=== PATIENT | female | born 1995 | race Hispanic/Latino ===

== ENCOUNTER 2017-01-09 01:23 | Emergency (ER) | payer OTHER ==
[~2017-01-09] VITALS: Ht 149.9 cm; Wt 45.5 kg
[2017-01-09 01:28] VITALS: BP 119/78; PULSE 78; RESP 16; O2SAT 100
[2017-01-09] MEDS ORDERED: 0.9% Sodium Chloride 1,000 ML IV ONE (01:45)
[2017-01-09] MEDS ORDERED: MethylprednisoLONE Sodium Succinate 62.5 mg/mL 2 mL Inj IVPUSH ONE (01:45)
--- NOTE | 2017-01-09 01:48 | ED.REPORT ---
HPI-Allergic Reaction Date of Service January 09, 2017 ED Provider: Fredy Ulrich MD 21 y/o female with no pertinent hx presents to the ED complaining of facial swelling, itching, facial erythema, burning sensation in the face, numbness in the cheeks and headache, onset this afternoon. Her sx seemed to resolve partially since arriving at the ED. She reports she is unaware of the cause of this allergic reaction. She denies dyspnea, hives and dysphasia. Nursing Notes Stated Complaint: ALLERGIC REACTION, FACE SWELLING Chief Complaint: Allergic Reaction Nursing Notes Reviewed: Yes Allergies: Coded Allergies: No Known Allergies (Verified Allergy, Unknown, 01/16/16) No Active Prescriptions or Reported Meds General Time Seen by MD: 01:43 Chief Complaint Allergic reaction, Swelling face Hx Obtained From: Patient Arrived By: Walk-in Onset Occurred: 1 - 4 hours ago Context of Onset: Unknown Symptom Duration: Since onset Progression Since Onset: Constant Location: : Head Quality: Painful Severity: Current: Mild Severity: Maximum: Mild Recent Healthcare: No recent doctor visit Similar Sx Previous: No Past Medical History Past Medical History none reported Past Surgical History none reported Smoking History Never Smoker Social History Alcohol Use: Denies alcohol use Drug Use: Denies drug use Other Social History: Lives with parents Occupation works at a [employer] Status Independent Review of Systems reports: facial swelling, facial erythema, facial numbness and "burning" sensation denies: dysphasia Eyes: Reports: Blurred bilateral, Blurred left, Blurred right, Diplopia, Discharge bilateral, Discharge left, Discharge right, Eye pain bilateral, Eye pain left, Eye pain right, Photophobia, Redness bilateral, Redness left, Redness right, Visual loss bilateral, Visual loss left, Visual loss right Respiratory: Denies: Shortness of breath Allergy / Immune: Reports: Itching, Denies: Hives Neurologic: Reports: Headache Complete sys rev & neg: except as marked. Physical Exam Initial Vital Signs Vital Signs (First) Date Time Temp Pulse Resp B/P Pulse Ox O2 Delivery O2 Flow Rate FiO2 01/09/17 01:28 36.8 78 16 119/78 100 Room Air Initial VS: Reviewed, Vital signs normal Head / Eyes: Atraumatic, Normocephalic, PERRL Neck: Supple, Non-tender, Full range of motion Abdomen / GI: Soft, Non-tender Extremities: Vascular intact, Neuro intact, No swelling, No tenderness Neurologic: Alert, Oriented, Nonfocal General/Constitutional: Awake, Alert Appearance / Presentation: Positive: Pale Facial swelling and puffiness Respiratory / Chest: Atraumatic, Breath sounds NL, Breath sounds = bilat, No respiratory distress, No rales, No rhonchi, No wheezing Cardiovascular: Heart rate NL, Regular rhythm, Heart sounds NL, No gallop Skin: Atraumatic, Color NL, No rash, Warm, Dry Color / Condition: Negative: Erythema generalized, Erythema localized No hives ENT: Atraumatic, Airway patent, Mucous membranes moist Circumoral puffiness Uvula and posterior pharynx appear normal Interpretation & Diagnostics Lab Results Interpretation Result Diagram: 01/09/17 0140 01/09/17 0140 Test 01/09/17 01:40 White Blood Count 7.4th/mm3 (3.8-10.1) Red Blood Count 4.02mil/mm3 (3.90-5.20) Hemoglobin 12.0g/dL (12.0-15.6) Hematocrit 36.0% (35.0-46.0) Mean Corpuscular Volume 89.6fL (81-100) Mean Corpuscular Hemoglobin 29.9pg (27.0-35.0) Mean Corpuscular Hemoglobin Concent 33.3% (32.0-37.0) Red Cell Distribution Width 11.9% (12.3-15.4) Platelet Count 236bil/L (150-400) Neutrophils (%) (Auto) 51.4% (40-74) Lymphocytes (%) (Auto) 38.5% (14-46) Monocytes (%) (Auto) 8.5% (4-12) Eosinophils (%) (Auto) 1.2% (0-5) Basophils (%) (Auto) 0.3% (0-3) Hold Purple Top Tube Received (Received) Prothrombin Time 10.1sec (8.1-12.5) Prothromb Time International Ratio 0.95ratio Hold Blue Top Tube Received (Received) Sodium Level 137mEq/L (134-144) Potassium Level 3.8mEq/L (3.5-5.2) Chloride Level 100mEq/L (97-108) Carbon Dioxide Level 21mmol/L (18-29) Blood Urea Nitrogen 12mg/dL (6-20) Creatinine 0.48mg/dL (0.57-1.00) Estimat Glomerular Filtration Rate 230mL/min (>59) Glucose Level 100mg/dL (60-99) Calcium Level 8.8mg/dL (8.5-10.1) Magnesium Level 1.8mg/dL (1.6-2.6) Total Bilirubin < 0.2mg/dL (0.0-1.2) Aspartate Amino Transf (AST/SGOT) 15U/L (0-50) Alanine Aminotransferase (ALT/SGPT) 9U/L (0-32) Alkaline Phosphatase 45U/L (25-150) Total Protein 7.2g/dL (6.4-8.4) Albumin 4.3g/dL (3.4-5.0) Hold Red Top Tube Received (Received) Hold [place] Top Tube Received (Received) Lab values outside NL range: no clinical significance. CT Head Interpretation Conclusion: No acute intracranial abnormality. Ethmoid sinus disease. Signed by Chiqui Landaverde M.D. 01/09/2017; 02:25 Study: Head CT no contrast Interpretation / Wet Read by: Interpret - Radiologist Re-Eval/Medical Decision Med Decision/Clinical Course 21-year-old female who presents with pallor, diaphoresis, facial and perioral swelling and itching with some swelling inside her mouth. Despite this local swelling she did not have respiratory distress. This was fairly rapid onset and continued to progress mildly. She had no wheezes. IV access was obtained. During the IV start she had a vasovagal episode with near-syncope. It was a bit difficult to assess the severity with complex combination of symptoms. She was given fluids, Cipro Medrol, and subcutaneous epinephrine. Shortly after the epinephrine she had wide complex ventricular rhythm at a normal rate. There was a small amount of higher grade ectopy with ventricular couplets and triplets. These resolved without recurrence. She improved dramatically without further treatment. Her blood pressure was somewhat elevated during her visit but had returned to her normal by the end of the visit. She was ambulatory without any difficulty and felt much better. Source of Hx: Old records, Family Re-Evaluation/Progress #1: Time of Eval: 02:06 Re-Evaluation/Progress Note: Pt rechecked. Pt reports sudden onset of severe headache, lightheadedness and tachycardia post epinephrine administration. Re-Evaluation/Progress #2: Time of Eval: 04:42 Patient Status: Condition improved Re-Evaluation/Progress Note: Rechecked pt. Discussed lab and imaging results and diagnosis. Informed the pt of the plan to discharge. Pt understands and agrees with plan. F/U instructions and RTER warning given. All questions addressed. Counseled Regarding: Diagnosis, Lab results, Need for follow-up, When/why to return to ED Discharge & Departure Primary Impression: Allergic reaction Encounter type: initial encounter Qualified Code: T78.40XA - Allergy, unspecified, initial encounter Additional Impressions: Ventricular tachycardia seen on traffic monitor specialist Ventricular arrhythmia Disposition: Home Discharge Condition All VS Reviewed: Yes Patient Instructions: Anaphylaxis (GEN) Additional Instructions: You had an allergic reaction to something, cause uncertain. You nearly passed out when your IV was started. You were given Benadryl, steroids, epinephrine, and fluids. You then had a reaction to the epinephrine (adrenaline) which cause your heart to race. You should avoid this medication in the future. Your allergic symptoms have resolved. Diphenhydramine (Benadryl) 25 mg 3 times a day as needed for rash, swelling, or itching. Return here if your severe symptoms return. Referrals: [facility] Scribe Attestation Portions of this note were transcribed by Yvette Patel. I, , personally performed the history, physical exam and medical decision-making;I reviewed and confirmed the accuracy of the information in the transcribed note. Signed by Christiano Bishop. 01/09/17 [id number] copies to: [facility] Fredy Ulrich MD January 09, 2017 01:47 Yvette Patel January 09, 2017 03:22
[2017-01-09 02:03] VITALS: BP 133/90; PULSE 97; RESP 17; O2SAT 98
[2017-01-09 02:17] LABS: BASOPHILS % (AUTO) 0.3 % (0-3); EOSINOPHILS % (AUTO) 1.2 % (0-5); MONOCYTES % (AUTO) 8.5 % (4-12); Mean Corpuscular Hemoglobin 29.9 pg (27.0-35.0); Mean Corpuscular Volume 89.6 fL (81-100); NEUTROPHILS % (AUTO) 51.4 % (40-74); Platelet Count 236 bil/L (150-400)
[2017-01-09 02:21] VITALS: BP 150/97; RESP 26; O2SAT 100
[2017-01-09 02:22] LABS: INR 0.95 ratio
[2017-01-09 02:37] LABS: Magnesium 1.8 mg/dL (1.6-2.6)
[2017-01-09 02:47] VITALS: BP 101/53; PULSE 98; RESP 18; O2SAT 99
[2017-01-09 04:54] VITALS: BP 101/69; PULSE 91; RESP 17; O2SAT 99
[2017-01-09 05:12] VITALS: BP 99/60; PULSE 92; RESP 16; O2SAT 98
--- NOTE | 2017-01-09 10:04 | DRSVH ---
PROCEDURE: CT BRAIN WITHOUT CONTRAST ([id number]) INDICATIONS: headache TECHNIQUE: Noncontrast 4.5 mm thick angled axial sections acquired from the foramen magnum to the vertex, with c oronal reformats. COMPARISON: None. FINDINGS: Image quality: Excellent. CSF spaces: Basal cisterns are patent. No extra-axial fluid collections. Ventricles are normal in size and shape. Brain: No midline shift. No intracranial masses or hemorrhage. Aly-white matter interface is norm al. Skull and face: Calvarium and visualized facial bones are intact, without suspicious lesions. Sinuses: Visualized sinuses demonstrate minimal ethmoid sinus mucosal thickening. IMPRESSION: 1. No acute intracranial process. Dictated by: Ethel Joseph M.D. on 01/09/2017 at 10:02 Approved by: Ethel Joseph M.D. on 01/09/2017 at 10:03
== END 2017-01-09 05:07 | disposition home or self-care (01) ==
LOC: SED 01:45
DX: R20.2 Paresthesia of skin (principal); R51 Headache; L29.9 Pruritus, unspecified; T78.40XA Allergy, unspecified, initial encounter; X58.XXXA Exposure to other specified factors, initial encounter; Y93.89 Activity, other specified; Y92.9 Unspecified place or not applicable; Y99.8 Other external cause status; I47.2 Ventricular tachycardia; I49.9 Cardiac arrhythmia, unspecified
CPT/HCPCS: 36415; 70450; 80053; 83735; 85025; 85610; 96361; 96372; 96374; 96375; 99285; J0171; J1200; J2930; J7030